=== PATIENT | female | born 1990 | race African-American/Black ===

== ENCOUNTER 2016-08-24 14:55 | Emergency (ER) | payer OTHER ==
[~2016-08-24] VITALS: Ht 172.7 cm; Wt 61.2 kg
[~2016-08-24 14:55] MED LIST: APAP500 PO; DERMOPLAST SPRA56 ML; HYDROCORTISONE30 G9 RE; IBUPROFEN200 M2 PO; K-DUR 20 MEQ T20 MEQ PO; KEFLEX500 MG PO; LANOLIN56 GM; SENOKOT-S1 TA1 PO; TUCKS MEDICATE1 EAC1; ZOFRAN4 MG PO
[2016-08-24 15:46] LABS: ABSOLUTE NEUTROPHILS 4.7 thou/uL (1.4-8.2); BASOPHILS 0.7 % (0.0-2.0); EOSINOPHILS 0.7 % (0.0-3.0); HEMATOCRIT 39.7 % (37.0-47.0); HEMOGLOBIN 13.2 gm/dL (12.0-15.0); LYMPHOCYTES 25.9 % (24.0-44.0); MCH 27.6 pg (26.0-34.0); MCHC 33.3 g/dL (28.0-37.0); MONOCYTES 6.8 % (1.0-8.0); PLATELET COUNT 202 thou/uL (150-400); POLYS 65.9 % (36.0-66.0); RBC 4.78 mil/uL (4.20-5.00); RDW 14.3 % (10.5-14.5); WBC 7.1 thou/uL (4.0-11.0)
[2016-08-24 15:49] LABS: MANUAL DIFF NO
[2016-08-24 15:58] LABS: CALCIUM 9.2 mg/dL (8.5-10.1); CREATININE 0.7 mg/dL (0.6-1.3); POTASSIUM 3.7 mmol/L (3.5-5.1)
[2016-08-24] MEDS ORDERED: ONDANSETRON HCL4 M2 PO (17:03)
[2016-08-24] MEDS ORDERED: NORCO 5-325 TA1 EACH PO (17:03)
[2016-08-24] MEDS ORDERED: IBUPROFEN 600600 M1 PO (17:03)
[2016-08-24 18:29] VITALS: BP 126/86
[2016-08-25] MEDS ORDERED: IBUPROFEN 600600 M1 PO (08:49)
[2016-08-25] MEDS ORDERED: NORCO 5-325 TA1 EACH PO (08:49)
== END 2016-08-24 18:29 | disposition home or self-care (01) ==
LOC: ER 14:55
PROVIDERS: Nurse Practitioner
DX: S52.691A Other fracture of lower end of right ulna, initial encounter for closed fracture (principal); S63.094A Other dislocation of right wrist and hand, initial encounter; F10.99 Alcohol use, unspecified with unspecified alcohol-induced disorder; V49.40XA Driver injured in collision with unspecified motor vehicles in traffic accident, initial encounter; Y93.89 Activity, other specified; Y92.89 Other specified places as the place of occurrence of the external cause; Y99.8 Other external cause status

== ENCOUNTER 2016-08-25 08:06 | Emergency (ER) | payer OTHER ==
[~2016-08-25] VITALS: Ht 172.7 cm; Wt 59.0 kg
[~2016-08-25 08:06] MED LIST changes: +IBUPROFEN 600600 M1 PO; +NORCO 5-325 TA1 EACH PO; +ONDANSETRON HCL4 M2 PO
[2016-08-25 08:13] VITALS: BP 122/80
[2016-08-25] MEDS ORDERED: NORCO 5-325 TA1 EACH PO (08:49)
[2016-08-25] MEDS ORDERED: IBUPROFEN 600600 M1 PO (08:49)
== END 2016-08-25 09:04 | disposition home or self-care (01) ==
LOC: ER 08:06
DX: S52.511D Displaced fracture of right radial styloid process, subsequent encounter for closed fracture with routine healing (principal); V49.9XXD Car occupant (driver) (passenger) injured in unspecified traffic accident, subsequent encounter

== ENCOUNTER → 2016-10-11 | Outpatient (CLI) | payer OTHER | LOC: RAD 13:13 | DX: S63.011D Subluxation of distal radioulnar joint of right wrist, subsequent encounter (principal); X58.XXXD Exposure to other specified factors, subsequent encounter ==